=== PATIENT | female | born 1970 | race Caucasian/White ===

== ENCOUNTER 2017-03-06 20:33 | Emergency (ER) | payer SELFPAY, OTHER | END 2017-03-07 04:19 | disposition left against medical advice (07) | LOC: E/R 20:33 | DX: Z53.21 Procedure and treatment not carried out due to patient leaving prior to being seen by health care provider (principal) ==

== ENCOUNTER 2018-12-03 19:26 | Emergency (ER) | payer OTHER ==
[2018-12-03] MEDS: SODIUM CHLORIDE 0.9% 1L BAG IV* (21:08)
== END 2018-12-03 23:41 | disposition home or self-care (01) ==
LOC: E/R 19:26
DX: R51 Headache (principal); C50.919 Malignant neoplasm of unspecified site of unspecified female breast; C79.51 Secondary malignant neoplasm of bone
CPT/HCPCS: 70450; 71045; 80053; 81001; 81003; 81025; 83605; 84484; 85025; 85610; 85730; 87040-91; 87086; 93005; 99285-25